=== PATIENT | female | born 1980 | race Asian ===

== ENCOUNTER 2020-06-21 06:34 | Emergency (ER) | payer OTHER ==
[~2020-06-21] VITALS: Ht 154.9 cm; Wt 51.7 kg
[2020-06-21 06:43] VITALS: Ht 154.9 cm; Wt 51.7 kg
[2020-06-21 07:19] VITALS: BP 115/51
== END 2020-06-21 07:19 | disposition home or self-care (01) ==
LOC: ED 06:34
DX: H00.011 Hordeolum externum right upper eyelid (principal)